=== PATIENT | female | born 1985 | race Hispanic/Latino ===

== ENCOUNTER 2020-12-03 09:12 | Emergency (ER) | payer SELFPAY ==
[~2020-12-03] VITALS: Ht 157.5 cm; Wt 70.8 kg
[2020-12-03 09:55] LABS: CLARITY,URINE CLOUDY (CLEAR); COLOR,URINE YELLOW (YELLOW); KETONES,URINE NEGATIVE (NEGATIVE); LEUKOCYTE ESTERASE ,URINE LARGE (NEGATIVE); NITRITE,URINE POSITIVE (NEGATIVE); PROTEIN,URINE DIPSTICK 1+ (NEGATIVE); URINE UROBILINOGEN 0.2 mg/dL (0.2 - 1)
[2020-12-03 10:13] LABS: BACTERIA,URINE MANY /HPF; EPITHELIAL CELLS,URINE FEW /LPF; WBC,URINE (MAN) >50 /HPF (0-5)
[2020-12-03 11:02] VITALS: BP 118/76
== END 2020-12-03 11:05 | disposition home or self-care (01) ==
LOC: ER 10:00
DX: R30.0 Dysuria (principal); N39.0 Urinary tract infection, site not specified; R11.0 Nausea
CPT/HCPCS: 81001; 81025; 87086; 87186; 99283